=== PATIENT | female | born 1955 | race Asian ===

== ENCOUNTER → 2017-02-26 | Day surgery (SDC) | payer BC ==
[~2017-02-26] MED LIST: HYDROmorphone 2 MG/ML VIAL IV PRN; IV RINGERS,LACTATED 1000ML 1,000 ML IV SCH; LIDOCAINE 1% 1 ML SYRINGE. ID PRN; LIDOCAINE 2% PF Vial for OR 5 ML VIAL. ONE; MORPHINE SULFATE 2 MG/ML DISP.SYRIN. IV PRN; ONDANSETRON PF 4 MG/2 ML VIAL. IV PRN; PROCHLORPERAZINE 10 MG/2 ML VIAL. IV PRN; PROPOFOL 0 ML IV ONE; PROPOFOL 20 ML IV ONE; fentaNYL PF VIAL 100 MCG/2 ML VIAL IV PRN
[2017-02-26 10:21] VITALS: BP 122/71
--- NOTE | 2017-02-26 13:02 | HP ---
ADMIT DATE: 02/26/2017 HISTORY OF PRESENT ILLNESS: A 61-year-old female whose past medical history is significant for cholecystectomy, is seen for interval screening colonoscopy. Bowel habits have been regular without diarrhea or constipation. There has been no melena and/or hematochezia. FAMILY HISTORY: Likewise unrevealing for colon polyps or colon cancer. Colonoscopy 10 years ago was unrevealing at that time. She is otherwise without additional complaints today. PAST MEDICAL HISTORY: Status post cholecystectomy. ALLERGIES: None. MEDICATIONS: None. SOCIAL HISTORY: She is a smoker. She does not drink. FAMILY HISTORY: Noncontributory. REVIEW OF SYSTEMS: Per records. PHYSICAL EXAMINATION: GENERAL: Reveals a well-nourished, well-developed female. VITAL SIGNS: Temperature is 98.1, pulse 102, respirations 20. HEENT: Normocephalic and atraumatic head. Pupils and extraocular movements not tested. Sclerae anicteric. NECK: Supple. LUNGS: Clear. CARDIOVASCULAR: Reveals an S1, S2 without S3, S4 or appreciable murmur. ABDOMEN: Reveals soft abdomen, normal bowel sounds, without appreciable hepatosplenomegaly. EXTREMITIES: Reveals no cyanosis, clubbing, or edema. IMPRESSION: Colorectal screening is warranted at this time. Risks and benefits of procedure including risk of hemorrhage or perforation during the operation have been discussed. The patient is willing to proceed at this time. ALBERT KENDRICK MD DR: HATTIE/mary JOB#: [id number] / [id number]
== END | disposition home or self-care (01) ==
LOC: ENDOS 09:00
PROVIDERS: ATTEND Internal Medicine Gastroenterology
DX: Z12.11 Encounter for screening for malignant neoplasm of colon (principal); K64.0 First degree hemorrhoids; K57.30 Diverticulosis of large intestine without perforation or abscess without bleeding; F17.200 Nicotine dependence, unspecified, uncomplicated; Z90.49 Acquired absence of other specified parts of digestive tract
CPT/HCPCS: 45378; J2001; J2704

== ENCOUNTER → 2021-01-01 | Day surgery (SDC) | payer MEDICARE ==
[~2021-01-01] VITALS: Ht 162.6 cm; Wt 150.0 kg
[~2021-01-01] MED LIST changes: +ALEN70TA3 PO; -HYDROmorphone 2 MG/ML VIAL IV PRN; -LIDOCAINE 1% 1 ML SYRINGE. ID PRN; -LIDOCAINE 2% PF Vial for OR 5 ML VIAL. ONE; -MORPHINE SULFATE 2 MG/ML DISP.SYRIN. IV PRN; -ONDANSETRON PF 4 MG/2 ML VIAL. IV PRN; -PROCHLORPERAZINE 10 MG/2 ML VIAL. IV PRN; -PROPOFOL 0 ML IV ONE; +PROPOFOL 10 MG/ML (20ML) VIAL. IV ONE; -PROPOFOL 20 ML IV ONE; -fentaNYL PF VIAL 100 MCG/2 ML VIAL IV PRN
[2021-01-01 08:42] VITALS: BP 151/83
[2021-01-01 10:10] VITALS: BP 136/84
--- NOTE | 2021-01-03 15:08 | PATHOLOGY ---
[facility] Accession Number: [id number] . 01 Material submitted: . esophagus - DISTAL ESOPHAGUS BIOPSY. Modifiers: distal . 01 Clinical history: . HEARTBURN GERD/EGD R/O VASQUEZ'S . 02 Diagnosis: Esophageal biopsies, distal esophagus: - Reflux esophagitis. (JPM:ian; 01/03/2021) S 01/03/2021 1145 Local . 02 Comment: Sections of the distal esophageal biopsy reveal segments of focally tangentially oriented hyperplastic squamous esophageal mucosa. There are focal intraepithelial chronic inflammatory cells. The findings are consistent with reflux esophagitis. There is no evidence of Vasquez's change, dysplasia, or malignancy. (JPM:ian; 01/03/2021) . 02 Electronically signed: . Ravi Esteban MD, Pathologist NPI- [id number] . 01 Gross description: . The specimen is received in formalin, labeled "Velez, Sung, distal esophagus rule out Vasquez's" received as multiple bray-white fragments of soft tony tissue measuring up to 0.4 cm. Entirely submitted in A1. ([facility]; 01/02/2021) CHRIS/CHRIS 01/03/2021 1143 Local . 02 Pathologist provided ICD-10: K21.00 . 02 CPT . 979268 Specimen Comment: A courtesy copy of this report has been sent to [phone], [phone] Specimen Comment: [id number] Specimen Comment: Report sent to / DR LUU Performed at: 01 [facility] [address], [place], [place] [id number] MD Jose Martin Tarango MD Phone: [phone] Performed at: 02 [facility] [address] [place], [place] [id number] MD Ravi Esteban MD Phone: [phone]
== END | disposition home or self-care (01) ==
LOC: ENDOS 07:22
PROVIDERS: ATTEND Internal Medicine Gastroenterology
DX: R12 Heartburn (principal); K21.00 Gastro-esophageal reflux disease with esophagitis, without bleeding; K31.89 Other diseases of stomach and duodenum; M19.90 Unspecified osteoarthritis, unspecified site; Z90.49 Acquired absence of other specified parts of digestive tract; Z98.890 Other specified postprocedural states; Z79.899 Other long term (current) drug therapy; Z87.891 Personal history of nicotine dependence; Z20.822 Contact with and (suspected) exposure to COVID-19
CPT/HCPCS: 43239; 87426; J2704